=== PATIENT | female | born 1970 | race Caucasian/White ===

== ENCOUNTER 2020-06-11 07:36 | Outpatient (REF) | payer BC, SELFPAY ==
--- NOTE | 2020-06-11 07:40 | MM_ITS ---
EXAMINATION: MM SCREENING DIGITAL BREAST TOMOSYNTHESIS, BILATERAL CLINICAL INFORMATION: Screening. Asymptomatic. The lifetime risk of breast cancer based on the Tyrer-Cuzick Model is 13%. COMPARISON: Mammography: 06/04/2019, 04/21/2018 TECHNIQUE: Digital breast tomosynthesis is performed in both the craniocaudal and mediolateral oblique views along with computer-aided detection (CAD). Synthesized 2D images are generated from the tomosynthesis. FINDINGS: There are scattered areas of fibroglandular density (ACR BI-RADS breast composition Category b). There are no significant masses, abnormal calcifications, or other abnormalities. The axilla and skin contours are unremarkable. No significant changes from prior studies. MM/MM tomosynthesis screening BI IMPRESSION: No mammographic evidence of malignancy. ASSESSMENT: BI-RADS 1: Negative RECOMMENDATION: Routine annual mammography screening. This patient's information was entered into a reminder system with a target due date for their next mammogram.
== END 2020-06-11 07:37 | disposition home or self-care (01) ==
LOC: HO.MAMMO 07:36
PROVIDERS: PCP Internal Medicine; Visit Provider Internal Medicine
DX: Z12.31 Encounter for screening mammogram for malignant neoplasm of breast (principal)
CPT/HCPCS: 77063; 77067

== ENCOUNTER → 2021-11-09 10:56 | Outpatient (BNVA) | payer BC, SELFPAY | PROVIDERS: PCP Internal Medicine; Referring Provider Internal Medicine; Visit Provider Physician Assistant | DX: Z13.89 Encounter for screening for other disorder (principal) ==

== ENCOUNTER 2022-02-26 07:18 | Day surgery (SDC) | payer BC, SELFPAY ==
[2022-02-22 10:04] VITALS: BMI 25.2
--- NOTE | 2022-02-25 09:52 | P.CONAN_ITS ---
Documented by User: Yesenia Lainez NP 02/25/22 09:52 HPI - Anesthesia Eval Consult details Narrative: 51yo F for Colonoscopy PMFSH Active Problems Active Problems: All Active Problems (Updated 11/09/21 @ 11:28 by Deepa Lainez PA-C) Colon cancer screening (Acute) Overweight (BMI 25.0-29.9) (Acute) Annual physical exam (Acute) Vitamin D deficiency (Acute) Acquired hypothyroidism (Acute) Asthma (Acute) Past Medical History Medical History Acquired hypothyroidism Asthma Overweight (BMI 25.0-29.9) Vitamin D deficiency Family History Family History Mother Hypertension Hyperlipidemia Dementia Surgical History Surgical History No significant past surgical history Social History Social History Housing: House Alcohol intake: current Alcohol intake frequency: a few times a week Alcohol type: beer Patient Tobacco Use Status: Former Tobacco user Second Hand Smoke Exposure: Yes Use of substances other than those prescribed or required for medical reasons: No Are you DNR?: No Advance Directives: No Advance Directives Information Provided: Yes service: No Current occupational status: employed Meds Allergies Allergy/AdvReac Type Severity Reaction Status Date / Time nitrofurantoin Allergy Intermediate HIVES Verified 02/19/22 13:54 [From Macrobid] Home Medications Medication Instructions Recorded Confirmed Last Taken Type norgestimate-ethinyl estradiol 1 tab PO DAILY 09/12/20 02/22/22 Unknown History 0.18 mg/0.215mg/0.25mg-35 mcg(28)tablet Exam Exam Date and Time: February 25, 2022 0952 Height,Weight and Vital Signs: Height 5 ft 4.5 in Weight 67.585 kg Assessment and Plan Assessment Anesthesia Assessment: Chart Reviewed Documented by User: Aury Freedman MD 02/26/22 07:55 [facility] Past Medical History Medical History Acquired hypothyroidism Asthma Overweight (BMI 25.0-29.9) Vitamin D deficiency Family History Family History Mother Hypertension Hyperlipidemia Dementia Surgical History Surgical History No significant past surgical history History of Problems with Anesthesia: No Social History Social History Housing: House Alcohol intake: current Alcohol intake frequency: a few times a week Alcohol type: beer Patient Tobacco Use Status: Former Tobacco user Second Hand Smoke Exposure: Yes Use of substances other than those prescribed or required for medical reasons: No Are you DNR?: No Advance Directives: No Advance Directives Information Provided: Yes service: No Current occupational status: employed Meds Allergies Allergy/AdvReac Type Severity Reaction Status Date / Time nitrofurantoin Allergy Intermediate HIVES Verified 02/19/22 13:54 [From Macrobid] Home Medications Medication Instructions Recorded Confirmed Last Taken Type norgestimate-ethinyl estradiol 1 tab PO DAILY 09/12/20 02/22/22 Unknown History 0.18 mg/0.215mg/0.25mg-35 mcg(28)tablet Exam Airway Mallampati Class: II TM Dist: >3cm Neck ROM: Full Loose/Missing/Broken Teeth: No Heart: RRR Lungs: CTA Assessment and Plan Assessment Anesthesia Assessment: Anesthesia Plan Discussed Final Anesthetic Review History of Problems with Anesthesia: No NPO: Yes ASA Class: II Final Preanesthetic Review: Meds/Allgs Chart Reviewed, Consent Obtained/Reviewed and Anes Risks/Benef Reviewed Patient Risk: Low Procedure Risk: Low Anesthetic Plan Anesthetic Plan: MAC: Disposition: Standard PACU
[2022-02-26 07:26] VITALS: BMI 25.0
--- NOTE | 2022-02-26 07:26 | MHC.SHP ---
Pre-Procedural Eval Section A Date of Service: 02/26/22 The patient is an INPATIENT: No The History & Physical has been completed within 30 days and I have reviewed it.: No Section B Chief Complaint: screening Details of Present Illness: Colon cancer screening Relevant Family History (Specify if Yes): No Relevant Social History: Tobacco Use (Former smoker) Present Medications: see Short Stay Collaborative assessment Medical History: Significant History (Acquired hypothyroidism Asthma Overweight (BMI 25.0-29.9) Vitamin D deficiency) History of Previous Operations: No relevant previous surgery Allergies: Allergies Allergy/AdvReac Type Severity Reaction Status Date / Time nitrofurantoin Allergy Intermediate HIVES Verified 02/19/22 13:54 [From Macrobid] Review of Systems Sugical H&P ROS: Negative: Constitution, Cardiovascular, Respiratory and Gastrointestinal Exam Surgical H&P Exam: Normal: Heart, Normal: Lungs, Normal: Extremities and Normal: Abdomen Plan Diagnosis/Plan: Unchanged I have reviewed the history and physical and performed a pertinent physical examination on my patient. No changes have occurred unless specified.
[2022-02-26] MEDS: Lactated Ringers 1,000 ML 100 ML IVCONT (07:47)
--- NOTE | 2022-02-26 08:13 | P.BOP_ITS ---
Brief Operative Note Date of Service: 02/26/22 Pre-op diagnosis: Colon cancer screening Post-op diagnosis: other (Diverticulosis, hemorrhoids) Procedure: COLONOSCOPY TILL CECUM Consent: Indications for the procedure and potential complications of bleeding, perforation, reaction to medications and missed diagnosis were discussed with the patient and informed consent was obtained. Instrument: Olympus PCF H 190 L variable stiffness pediatric colonoscope Monitoring: Vital signs and clinical assessment, intermittent blood pressure monitoring, continuous EKG monitoring, Pulse oximetry and Carbon Dioxide monitoring were done throughout the procedure. Colon withdrawl time was 7 minutes. Procedure: The patient was placed in the left lateral decubitis position and pre-procedure medications were administered. After a digital rectal examination of the ano-rectum, the video colonoscope was inserted into the rectum and advanced through the colon to the cecum. The colonoscope was slowly withdrawn in a retrograde panoramic fashion and the colon mucosa was carefully examined including a retroflexed view of the rectum. Findings and interventions are described below. Procedure Difficulty: Without difficulty Findings: Terminal Ileum: Not evaluated Cecum: Normal Ascending Colon: Normal Transverse Colon: Normal Descending Colon: Normal Sigmoid Colon: Moderate diverticulosis Rectum: Normal Ano-rectum: Moderate internal hemorrhoids Colon preparation: Excellent Impression and Post Procedure Diagnosis: Colonoscopy Findings: No polyps were detected Moderate diverticulosis seen in the sigmoid colon Moderate hemorrhoids on retroflexed exam. Plan: Patient has an appointment on 03/11/22 in the GI Clinic with ERIC Hunt. Repeat Colonoscopy in 9-10 years (earlier if patient develops any new GI symptoms or family hx). Above findings were reviewed with the patient and diverticulosis handout was given in the discharge area Surgeon: Ryan Loomis MD Anesthesia: MAC Was an Cigar Head Perforator used for this Procedure?: Yes Cigar Head Perforator: Apolonia Romo Estimated blood loss (mL): 0 Pathology: none sent Condition: stable Disposition: PACU
--- NOTE | 2022-02-26 08:15 | W.PM.OPN ---
Operative Note Operative Note Date of Service: 02/26/22 Narrative: Pre-op diagnosis: Colon cancer screening Post-op diagnosis:?other (Diverticulosis, hemorrhoids) Procedure: COLONOSCOPY TILL CECUM Consent: Indications for the procedure and potential complications of bleeding, perforation, reaction to medications and missed diagnosis were discussed with the patient and informed consent was obtained. Instrument: Olympus PCF H 190 L variable stiffness pediatric colonoscope Monitoring: Vital signs and clinical assessment, intermittent blood pressure monitoring, continuous EKG monitoring, Pulse oximetry and Carbon Dioxide monitoring were done throughout the procedure. Colon withdrawl time was 7 minutes. Procedure: The patient was placed in the left lateral decubitis position and pre-procedure medications were administered. After a digital rectal examination of the ano-rectum, the video colonoscope was inserted into the rectum and advanced through the colon to the cecum. The colonoscope was slowly withdrawn in a retrograde panoramic fashion and the colon mucosa was carefully examined including a retroflexed view of the rectum. Findings and interventions are described below. Procedure Difficulty: Without difficulty Findings: Terminal Ileum: Not evaluated Cecum:? Normal Ascending Colon:? Normal Transverse Colon:? Normal Descending Colon:? Normal Sigmoid Colon:? Moderate diverticulosis Rectum:? Normal Ano-rectum:? Moderate internal hemorrhoids Colon preparation: Excellent ? Impression and Post Procedure Diagnosis: Colonoscopy Findings: No polyps were detected Moderate diverticulosis seen in the sigmoid colon Moderate hemorrhoids on retroflexed exam. Plan: Patient advised to cancel her FU appointment on 03/11/22 in the GI Clinic with ERIC Hunt (since no biopsies were obtained). Repeat Colonoscopy in 9-10 years (earlier if patient develops any new GI symptoms or family hx). Above findings were reviewed with the patient and diverticulosis handout was given in the discharge area Surgeon: Ryan Loomis MD Anesthesia:?MAC Was an Fertilizer Processing Supervisor used for this Procedure?:?Yes Fertilizer Processing Supervisor:?Aoplonia Romo Estimated blood loss (mL):?0 Pathology:?none sent Condition:?stable Disposition:?PACU
[2022-02-26 08:55] VITALS: BP 93/55; PULSE 83; RESP 14; TEMP 36.5; O2SAT 96
[2022-02-26 09:10] VITALS: BP 115/68; PULSE 75; RESP 14; TEMP 36.1; O2SAT 99
== END 2022-02-26 10:02 | disposition home or self-care (01) ==
PROVIDERS: PCP Internal Medicine; Visit Provider Internal Medicine Gastroenterology
PROC: 0DJD8ZZ Inspection of Lower Intestinal Tract, Via Natural or Artificial Opening Endoscopic (ICD-10-PCS; CPT 45378; principal; 2022-02-26 08:30)
DX: Z12.11 Encounter for screening for malignant neoplasm of colon (principal); K57.30 Diverticulosis of large intestine without perforation or abscess without bleeding; K64.8 Other hemorrhoids; E55.9 Vitamin D deficiency, unspecified; E03.9 Hypothyroidism, unspecified; E66.3 Overweight; Z68.25 Body mass index [BMI] 25.0-25.9, adult; J45.20 Mild intermittent asthma, uncomplicated; Z79.51 Long term (current) use of inhaled steroids; Z79.899 Other long term (current) drug therapy; Z88.1 Allergy status to other antibiotic agents
CPT/HCPCS: 45378; J3010

== ENCOUNTER 2022-05-11 08:39 | Outpatient (REF) | payer BC, SELFPAY ==
--- NOTE | ~2022-05-11 | MM_ITS ---
EXAMINATION: MM SCREENING DIGITAL BREAST TOMOSYNTHESIS, BILATERAL CLINICAL INFORMATION: Screening. Asymptomatic. The lifetime risk of breast cancer based on the Tyrer-Cuzick Model is 13%. COMPARISON: Mammography: 06/11/2020, 06/04/2019, 04/21/2018 TECHNIQUE: Digital breast tomosynthesis is performed in both the craniocaudal and mediolateral oblique views along with computer-aided detection (CAD). Synthesized 2D images are generated from the tomosynthesis. FINDINGS: There are scattered areas of fibroglandular density (ACR BI-RADS breast composition Category b). There are no significant masses, abnormal calcifications, or other abnormalities. No developing density or interval architectural abnormality. No significant changes parenchymal pattern. Skin contours are smooth. MM/MM tomosynthesis screening BI IMPRESSION: No mammographic evidence of malignancy. ASSESSMENT: BI-RADS 1: Negative RECOMMENDATION: Routine annual mammography screening. This patient's information was entered into a reminder system with a target due date for their next mammogram.
== END 2022-05-11 08:40 | disposition home or self-care (01) ==
LOC: HO.MAMMO 08:39
PROVIDERS: Visit Provider Internal Medicine
DX: Z12.31 Encounter for screening mammogram for malignant neoplasm of breast (principal)
CPT/HCPCS: 77063; 77067

== ENCOUNTER 2023-05-17 09:16 | Outpatient (REF) | payer BC, SELFPAY | END 2023-05-17 09:17 | disposition home or self-care (01) | LOC: HO.MAMMO 09:16 | PROVIDERS: PCP Internal Medicine; Visit Provider Internal Medicine | DX: Z12.31 Encounter for screening mammogram for malignant neoplasm of breast (principal) | CPT/HCPCS: 77063; 77067 ==

== ENCOUNTER → 2023-05-17 09:30 | Outpatient (BNV) | payer BC, SELFPAY | PROVIDERS: PCP Internal Medicine; Visit Provider Radiology Diagnostic Radiology | DX: Z12.31 Encounter for screening mammogram for malignant neoplasm of breast (principal) | CPT/HCPCS: 77063; 77067 ==

== ENCOUNTER 2023-10-04 08:54 | Outpatient (AMB) | payer BC, SELFPAY ==
[2023-10-04 08:59] VITALS: BP 110/72; PULSE 95; O2SAT 99; BMI 23.7
--- NOTE | 2023-10-04 08:59 | MHC.PC.OV ---
Vital Signs 10/04/23 08:59 Height 5 ft 4.5 in Weight 140 lb 8 oz BMI 23.7 BP 110/72 Blood Pressure Location Lt brachial Position Sitting Pulse 95 Pulse Source Pulse Oximeter Pulse Oximetry (%) 99 Oxygen Delivery Method Room Air Intake Visit Reasons: PE Software Security Consultant Required: No Accompanied by: Self / Same As Patient Allergies nitrofurantoin [From Macrobid] Allergy (Intermediate, Verified 10/04/23 09:34) HIVES Medication List - Last Reconciled 10/04/23 by Anirudh Adams MD albuterol sulfate 90 mcg/actuation 2 puffs inhalation QID PRN 90 days budesonide-formoterol 80-4.5 mcg/actuation (Symbicort) 2 inhalations inhalation BID 90 days levothyroxine (Synthroid) 75 mcg PO DAILY 90 days norgestimate-ethinyl estradiol 0.18/0.215/0.25 mg-35 mcg (28) 1 tab PO DAILY Tobacco use date assessed: 10/04/23 Dental Screening Dental Screen Date: 10/04/23 Did you have a dental visit in the last 12 months?: Yes Did you have a dental problem in the last 6 months where you did not have access to dental care?: No Was dental information given to patient?: Patient has dentist HPI PE HPI Details Patient comes in today for her annual physical examination States that she has been feeling stressed lately Reports that she still has trouble sleeping through the night - used to wake up around 1 to 2 am in the morning when her mother was still alive (mother last ) to change her and even though it has been a few months now since her mother passed, she still wakes up around this time out of habit States that she also wakes up a few times through the night and feels fatigued often when she wakes up in the morning Has also had some lapses of memory a few times and this is making her concerned that she might end up like her mother, who suffered from dementia during her last few years Relates (+) on and off headaches lately, mostly frontal, and she feels that these may be more from her lack of sleep and stress She denies any associated photophobia or nausea/vomiting with her headaches She denies any dizziness Denies any chest pains, no SOB No abdominal pain and no change in bowel habits noted Denies any acute urinary symptoms Needs her Symbicort inhaler Rx refilled through [facility] States that she needs her lab orders printed out as she has to get her labs done with [facility] for her insurance to cover the tests She is up-to-date with all of her cancer screenings - pap smear and 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 Loomis in January 2022 (recommend repeat colonoscopy in 10 years) [facility] Medical History (Updated 10/04/23 @ 09:49 by Anirudh Adams MD) Insomnia Vitamin D deficiency Acquired hypothyroidism Asthma Surgical History History of colonoscopy (~02/26/22) Family History Mother Hypertension Hyperlipidemia Dementia Social History Housing: House Alcohol intake: current Alcohol intake frequency: a few times a week Alcohol type: beer Patient Tobacco Use Status: Former Tobacco user Tobacco use type: Cigarette e-Cigarette/Vaping Use: Never Used Second Hand Smoke Exposure: Yes service: No Current occupational status: employed Cognitive needs: No Hearing needs: No Vision needs: Yes Questionnaire PHQ-9 Over the last 2 weeks, how often have you been bothered by any of the following problems? 1. Little interest or pleasure in doing things: not at all 2. Feeling down, depressed, or hopeless: not at all 3. Trouble falling or staying asleep, or sleeping too much: not at all 4. Feeling tired or having little energy: not at all 5. Poor appetite or overeating: not at all 6. Feeling bad about yourself - or that you are a failure or have let yourself or your family down: not at all 7. Trouble concentrating on things, such as reading the newspaper or watching television: not at all 8. Moving or speaking so slowly that other people could have noticed. Or the opposite - being so fidgety or restless that you have been moving around a lot more than usual: not at all 9. Thoughts that you would be better off or of hurting yourself in some way: not at all Total score: 0 Depression Screening Interpretation: Negative Depression Screening Done: Yes 22888 - PHQ-9 Billing: Yes Source: Developed by Drs. Atul Pickard, Scarlett Aponte, Troy Milligan and colleagues, with an educational sunitha from [employer]. Thrive Questionnaire Date Thrive assessed: 10/04/23 I am a: Patient What is your living situation today?: I have a steady place to live Within the past 12 months, did the food you bought not last and you didn't have the money to get more?: Never true Within the past 12 months, did you worry whether your food would run out before you got money to buy more?: Never true Do you have trouble paying for medicines?: No Do you have trouble getting transportation to medical appointments?: No Do you have trouble paying your heating and electricity bill?: No Do you have trouble taking care of your child, family member or friend?: No Do you have trouble with day-to-day activities such as bathing, preparing meals, shopping, managing finances, etc.?: No Are you currently unemployed and looking for a job?: No Are you interested in more education?: No Please select the resources that you would like help with: None Currently or been in a relationship where the following occur: no concerns reported THRIVE Score: 0 AUDIT C Alcohol Use Questionnaire (AUDIT-C) 1. How often do you have a drink containing alcohol?: Never 3. How often do you have six or more drinks on one occasion?: Never Total Score: 0 Score Reviewed/Action Taken: Yes SCOTT-7 AMB Questionnaire SCOTT-7 Date SCOTT - 7 assessed: 10/04/23 Feeling nervous, anxious, or on edge: 0 = Not at all Not being able to stop or control worryin = Not at all Worrying too much about different things: 0 = Not at all Trouble relaxin = Not at all Being so restless that it is hard to sit still: 0 = Not at all Becoming easily annoyed or irritable: 0 = Not at all Feeling afraid as if something awful might happen: 0 = Not at all Total SCOTT-7 score (0-4 normal; 5-9 mild; 10-14 moderate; 15-21 severe): 0 Source: Developed by Drs. Atul Pickard, Scarlett Aponte, Troy Milligan and colleagues, with an educational sunitha from [employer]. Review of Systems Const Denies chills, Reports difficulty sleeping (wakes up often in the middle of the night), Reports fatigue, Denies fever(s), Reports headache(s) (on and off) and Denies malaise Eyes Denies blurry vision, Denies change in vision, Denies irritation and Denies itchy eyes ENT Denies dysphagia, Denies dizziness, Denies otalgia, Reports headache(s) (on and off), Denies nasal congestion, Denies neck pain, Denies odynophagia, Denies sinus pain and Denies sore throat Card Denies chest pain, Denies rapid heart rate, Denies irregular heart rhythm, Denies palpitations and Denies dyspnea Resp Denies chest congestion, Denies cough, Denies dyspnea and Denies wheezing GI Denies abdominal pain, Denies bloating, Denies constipation, Denies dysphagia, Denies heartburn, Denies diarrhea, Denies nausea, Denies odynophagia and Denies vomiting Denies hematuria, Denies urinary frequency, Denies dysuria, Denies urinary incontinence and Denies urinary urgency Musc Denies back pain, Denies arthralgias, Denies joint swelling, Denies muscle weakness and Denies neck pain Skin/Breast Denies breast pain, Denies breast mass, Denies change in pigmentation, Denies lesions, Denies rash and Denies unusual bruising Neuro Denies dizziness, Reports headache(s) (on and off) and Denies paresthesias Psych Reports anxiety, Denies depression and Denies panic attacks Endo Reports fatigue and Denies palpitations Vin/Lymph Denies easy bruising Aller/Immun Denies itchy eyes and Denies wheezing Physical exam (Primary Care) Vital Signs: Last Vital Signs Pulse 95 10/04/23 08:59 BP 110/72 10/04/23 08:59 Pulse Ox 99 10/04/23 08:59 Oxygen Delivery Method Room Air 10/04/23 08:59 BMI result Body Mass Index 23.7 Tobacco/Smoking Status: Tobacco use Status Tobacco use date assessed 10/04/23 10/04/23 09:05 Patient Tobacco Use Status Former Tobacco user 10/04/23 09:05 Tobacco use type Cigarette 10/04/23 09:05 e-Cigarette/Vaping Use Never Used 10/04/23 09:05 PHQ-9: PHQ-9 Score PHQ-9: Total score 0 10/04/23 09:05 Depression Screening Interpretation: Negative Thrive Assessment: Date of Thrive Assessment Date Thrive assessed 10/04/23 10/04/23 09:05 Currently or been in a relationship where the following occur: no concerns reported Const General: no acute distress, alert and awake Orientation/consciousness: patient oriented x3 HENMT Head: Yes normocephalic and Yes atraumatic Ears: external ears normal, TM's normal bilaterally and EAC's normal General nose exam: No nasal discharge present Face and sinus: Yes normal facial exam and Yes sinuses nontender Teeth and gingiva: dentition normal Throat: Yes posterior oropharynx normal and Yes tonsils normal (no TP congestion) Eyes Eyelids: Yes eyelids normal Conjunctivae: conjunctivae normal Pupils: Equal, round and reactive pupils present EOM: EOMs intact bilaterally Neck Neck: Yes no lymphadenopathy and Yes supple Thyroid: Thyroid normal Resp Auscultation: clear to auscultation bilaterally, no rales and no wheezes Cardio Rate: regular rate Rhythm: regular rhythm Heart sounds: no murmurs GI Palpation (GI): Soft to palpation, nontender and No hepatosplenomegaly present Auscultation: normal bowel sounds General: Yes no CVA tenderness Back/Spine/Pelvis Back: no CVA tenderness Thoracic/Lumbar Spine: thoracic and lumbar spine normal to inspection Skin Lesions: no lesions Rashes: no rashes Neuro General: patient oriented x3, moves all extremities, no focal motor deficits and CN's II-XI intact bilaterally Cranial nerves: Yes Equal, round and reactive pupils present Cognition (Neuro): normal cognition Gait exam (Neuro): Normal gait present Extrem General: Yes no clubbing, cyanosis or edema Assessment and Plan Assessment & Plan (1) Annual physical exam: Code(s): Z00.00 - Encounter for general adult medical examination without abnormal findings Plan: Check labs She is up-to-date with all of her cancer screenings (2) Acquired hypothyroidism: Code(s): E03.9 - Hypothyroidism, unspecified Plan: Continue Synthroid 75 mcg QD Will recheck her TFTs for follow up (3) Asthma: Code(s): J45.909 - Unspecified asthma, uncomplicated Qualifiers: Asthma severity: mild Asthma persistence: intermittent Asthma complication type: uncomplicated Qualified Code(s): J45.20 - Mild intermittent asthma, uncomplicated Plan: Stable/well-controlled with no acute flare ups recently Continue Symbicort 80-4.5 mcg 2 inhalations BID (Rx refilled) and Albuterol HFA 2 inhalations Q 6 hours PRN (4) Vitamin D deficiency: Code(s): E55.9 - Vitamin D deficiency, unspecified Plan: Will recheck her Vitamin D level for follow up (5) Headache: Code(s): R51.9 - Headache, unspecified Qualifiers: Headache type: unspecified Headache chronicity pattern: episodic headache Intractability: not intractable Qualified Code(s): R51.9 - Headache, unspecified Plan: Likely due to stress and lack of sleep Will see if improving her sleep will help resolve these but patient is advised to call at any time if she feels that her headaches are progressing or getting worse (6) Insomnia: Code(s): G47.00 - Insomnia, unspecified Qualifiers: Insomnia type: unspecified Qualified Code(s): G47.00 - Insomnia, unspecified Plan: Sleep hygiene discussed Patient is advised to try some OTC Melatonin for now for a few weeks to see if these can help her regulate and maintain her sleeping through the night and if unsuccessful, advised that she can all at any time for some Rx to help with her sleep (7) Anxiety: Code(s): F41.9 - Anxiety disorder, unspecified Plan: Is likely related to her lack of sleep and due to subconscious concerns about her own risks for dementia (her mother suffered from dementia over the past few years prior to her passing last Thanksgiving) Advised that if we can help improve her sleep that this may get better but if not, she can call for appointment or Rx any time she feels that this is becoming a significant issue and is starting to impact her daily activities and routine Plan To return in 1 year for her next annual physical examination Orders: Orders Complete Blood Count Auto Diff Today Z00.00 - Encounter for general adult medical examination without abnormal findings Thyroid Stimulating Hormone Today E03.9 - Hypothyroidism, unspecified, Z00.00 - Encounter for general adult medical examination without abnormal findings Vitamin D 25-OH Total Today E55.9 - Vitamin D deficiency, unspecified, Z00.00 - Encounter for general adult medical examination without abnormal findings Comprehensive [place]. Panel Fast Today E78.00 - Pure hypercholesterolemia, unspecified, Z00.00 - Encounter for general adult medical examination without abnormal findings Lipid Panel Today E78.00 - Pure hypercholesterolemia, unspecified, Z00.00 - Encounter for general adult medical examination without abnormal findings UA CC w/rflx Micro + Cult Today R30.0 - Dysuria, Z00.00 - Encounter for general adult medical examination without abnormal findings Free T4 (Free Thyroxine) Today E03.9 - Hypothyroidism, unspecified, Z00.00 - Encounter for general adult medical examination without abnormal findings Medications: Refilled budesonide-formoterol 80-4.5 mcg/actuation (Symbicort) 2 inhalations inhalation BID 90 days 3 inhalers 3RF J45.20 - Mild intermittent asthma, uncomplicated budesonide-formoterol 80-4.5 mcg/actuation (Symbicort) 2 inhalations inhalation BID 90 days 3 inhalers 3RF J45.20 - Mild intermittent asthma, uncomplicated Coding Level of Care Code Est Pt Prev Care 40-64y(70548) Diagnoses Annual physical exam Z00.00 Acquired hypothyroidism E03.9 Mild intermittent asthma without complication J45.20 Asthma severity: mild Asthma persistence: intermittent Asthma complication type: uncomplicated Vitamin D deficiency E55.9 Nonintractable episodic headache, unspecified headache type R51.9 Headache type: unspecified Headache chronicity pattern: episodic headache Intractability: not intractable Insomnia, unspecified type G47.00 Insomnia type: unspecified Anxiety F41.9
== END 2023-10-04 09:32 | disposition home or self-care (01) ==
PROVIDERS: PCP Internal Medicine; Visit Provider Internal Medicine
DX: Z00.00 Encounter for general adult medical examination without abnormal findings (principal); E03.9 Hypothyroidism, unspecified; J45.20 Mild intermittent asthma, uncomplicated; E55.9 Vitamin D deficiency, unspecified; R51.9 Headache, unspecified; G47.00 Insomnia, unspecified; F41.9 Anxiety disorder, unspecified
CPT/HCPCS: 99396

== ENCOUNTER 2024-05-22 09:20 | Outpatient (REF) | payer BC, SELFPAY ==
--- NOTE | ~2024-05-22 | MM_ITS ---
EXAMINATION: MM SCREENING DIGITAL BREAST TOMOSYNTHESIS, BILATERAL CLINICAL INFORMATION: Screening. Asymptomatic. COMPARISON: Mammography: Comparison is made with available priors TECHNIQUE: Digital breast mammography with tomosynthesis is performed in both the craniocaudal and mediolateral oblique views along with computer-aided detection (CAD). FINDINGS: The breasts are heterogeneously dense, which may obscure small masses (ACR BI-RADS breast composition Category c). There are no significant masses, abnormal calcifications, or other abnormalities. MM/MM tomosynthesis screening BI IMPRESSION: No mammographic evidence of malignancy. ASSESSMENT: BI-RADS BI-RADS 1 - Negative RECOMMENDATION: Routine annual mammography screening. 1 year F/U This examination should not preclude the clinical evaluation of a suspicious palpable abnormality. This patient's information was entered into a reminder system with a target due date for their next mammogram. Electronically signed by: Savannah Munoz DO 06/01/2024 10:47 AM EDT
== END 2024-05-22 09:21 | disposition home or self-care (01) ==
LOC: HO.MAMMO 09:20
PROVIDERS: PCP Internal Medicine; Visit Provider Internal Medicine
DX: Z12.31 Encounter for screening mammogram for malignant neoplasm of breast (principal)
CPT/HCPCS: 77063; 77067

== ENCOUNTER → 2024-05-22 09:30 | Outpatient (BNV) | payer BC, SELFPAY | PROVIDERS: PCP Internal Medicine; Visit Provider Internal Medicine | DX: Z12.31 Encounter for screening mammogram for malignant neoplasm of breast (principal) | CPT/HCPCS: 77063; 77067 ==

== ENCOUNTER 2024-08-06 14:13 | Outpatient (AMB) | payer OTHER, SELFPAY ==
[2024-08-06 14:20] VITALS: BP 118/76; PULSE 79; O2SAT 99; BMI 24.6
--- NOTE | 2024-08-06 14:20 | A.OFFPC_ITS ---
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 Accompanied by: Self / Same As Patient Allergies nitrofurantoin [From Macrobid] Allergy (Intermediate, Verified 08/06/24 14:37) HIVES Medication List - Last Reconciled 08/06/24 by Anirudh Adams MD albuterol sulfate 90 mcg/actuation 2 puffs inhalation QID PRN 90 days budesonide-formoterol 80-4.5 mcg/actuation (Symbicort) 2 inhalations inhalation BID 90 days levothyroxine (Synthroid) 75 mcg PO DAILY 90 days meclizine 25 mg PO TID PRN norgestimate-ethinyl estradiol 0.18/0.215/0.25 mg-35 mcg (28) 1 tab PO DAILY Tobacco use date assessed: 08/06/24 Dental Screening Dental Screen Date: 08/06/24 Did you have a dental visit in the last 12 months?: Yes Did you have a dental problem in the last 6 months where you did not have access to dental care?: No Was dental information given to patient?: Patient has dentist HPI vertigo/ dizziness HPI Details Patient comes in today for evaluation of recurrent vertigo over the past couple of months Relates that her symptoms first started back on 06/05/2024 - recalls that she was in bed and just turned her head when she suddenly felt that everything was spinning around her Relates that she had some nausea and vomiting back then with her symptoms States that she has a friend who works as a physical therapist and who instructed her on the Raquel maneuver States that she tried this on her own, which initially triggered another episode of vertigo but eventually provided some relief of her symptoms States that his symptoms gradually on cleared up on their own after 2 weeks but she then had another bout of vertigo last month on 07/13/2024 while she was receiving massage and that her on and off symptoms lasted for about a week Relates that she had her most recent bout of vertigo a few days ago on 08/02/2024 that was again triggered when she turned around in bed and symptoms have been occurring on and off since then She also reports recent symptoms of headaches, unsteadiness, difficulty focusing and sensation of brain fog recently, which is affecting her ability to work and perform daily activities States that she recently tried the Raquel maneuver again but this time it did not help Patient denied any recent head trauma or any recent cough or cold symptoms She denies any chest pains, no shortness of breath No abdominal pain and no change in bowel habits noted [facility] Medical History (Updated 08/06/24 @ 14:47 by Anirudh Adams MD) Insomnia Vitamin D deficiency Acquired hypothyroidism Asthma Surgical History History of colonoscopy (~02/26/22) Family History Mother Hypertension Hyperlipidemia Dementia Social History Housing: House Alcohol intake: current Alcohol intake frequency: a few times a week Alcohol type: beer Patient Tobacco Use Status: Former Tobacco user Tobacco use type: Cigarette e-Cigarette/Vaping Use: Never Used Second Hand Smoke Exposure: Yes service: No Current occupational status: employed Cognitive needs: No Hearing needs: No Vision needs: Yes Questionnaire PHQ-9 Over the last 2 weeks, how often have you been bothered by any of the following problems? 1. Little interest or pleasure in doing things: not at all 2. Feeling down, depressed, or hopeless: not at all 3. Trouble falling or staying asleep, or sleeping too much: not at all 4. Feeling tired or having little energy: not at all 5. Poor appetite or overeating: not at all 6. Feeling bad about yourself - or that you are a failure or have let yourself or your family down: not at all 7. Trouble concentrating on things, such as reading the newspaper or watching television: not at all 8. Moving or speaking so slowly that other people could have noticed. Or the opposite - being so fidgety or restless that you have been moving around a lot more than usual: not at all 9. Thoughts that you would be better off or of hurting yourself in some way: not at all Total score: 0 Depression Screening Interpretation: Negative Depression Screening Done: Yes 10438 - PHQ-9 Billing: Yes Source: Developed by Drs. Atul Pickard, Scarlett pAonte, Troy Milligan and colleagues, with an educational sunitha from [employer]. Thrive Questionnaire Date Thrive assessed: 08/06/24 I am a: Patient What is your living situation today?: I have a steady place to live Within the past 12 months, did the food you bought not last and you didn't have the money to get more?: Never true Within the past 12 months, did you worry whether your food would run out before you got money to buy more?: Never true Do you have trouble paying for medicines?: No Do you have trouble getting transportation to medical appointments?: No Do you have trouble paying your heating and electricity bill?: No Do you have trouble taking care of your child, family member or friend?: No Do you have trouble with day-to-day activities such as bathing, preparing meals, shopping, managing finances, etc.?: No Are you currently unemployed and looking for a job?: No Are you interested in more education?: No Please select the resources that you would like help with: None Currently or been in a relationship where the following occur: No concerns reported THRIVE Score: 0 AUDIT C Alcohol Use Questionnaire (AUDIT-C) 1. How often do you have a drink containing alcohol?: Monthly or less 2. How many drinks containing alcohol do you have on a typical day when you are drinking?: 1 or 2 3. How often do you have six or more drinks on one occasion?: Never Total Score: 1 Score Reviewed/Action Taken: Yes SCOTT-7 AMB Questionnaire SCOTT-7 Date SCOTT - 7 assessed: 08/06/24 Feeling nervous, anxious, or on edge: 0 = Not at all Not being able to stop or control worryin = Not at all Worrying too much about different things: 0 = Not at all Trouble relaxin = Not at all Being so restless that it is hard to sit still: 0 = Not at all Becoming easily annoyed or irritable: 0 = Not at all Feeling afraid as if something awful might happen: 0 = Not at all Total SCOTT-7 score (0-4 normal; 5-9 mild; 10-14 moderate; 15-21 severe): 0 Source: Developed by Drs. Atul Pickard, Scarlett Aponte, Troy Milligan and colleagues, with an educational sunitha from [employer]. Review of Systems Const Denies chills, Reports difficulty sleeping (wakes up often in the middle of the night), Reports fatigue, Denies fever(s) and Denies headache(s) ENT Denies dysphagia, Reports vertigo (recurrent over the past month - see HPI for details), Reports dizziness, Denies otalgia, Denies headache(s), Denies neck pain, Denies odynophagia and Denies sore throat Card Denies chest pain, Denies irregular heart rhythm, Denies palpitations and Denies dyspnea Resp Denies chest congestion, Denies cough and Denies dyspnea GI Denies abdominal pain, Denies constipation, Denies dysphagia, Denies heartburn, Denies diarrhea, Reports nausea (at times, with increased vertigo), Denies odynophagia and Reports vomiting (at times) Denies urinary frequency, Denies dysuria and Denies urinary urgency Musc Denies back pain, Denies arthralgias and Denies neck pain Skin/Breast Denies rash Neuro Reports vertigo (recurrent over the past month - see HPI for details), Reports dizziness, Denies headache(s) and Denies paresthesias Psych Reports anxiety and Denies depression Endo Reports fatigue and Denies palpitations Vin/Lymph Denies easy bruising Physical exam (Primary Care) Vital Signs: Last Vital Signs Pulse 79 08/06/24 14:20 BP 118/76 08/06/24 14:20 Pulse Ox 99 08/06/24 14:20 Oxygen Delivery Method Room Air 08/06/24 14:20 BMI result Body Mass Index 24.6 Tobacco/Smoking Status: Tobacco use Status Tobacco use date assessed 08/06/24 08/06/24 14:26 Patient Tobacco Use Status Former Tobacco user 08/06/24 14:26 Tobacco use type Cigarette 08/06/24 14:26 e-Cigarette/Vaping Use Never Used 08/06/24 14:26 PHQ-9: PHQ-9 Score PHQ-9: Total score 0 08/06/24 14:53 Depression Screening Interpretation: Negative Thrive Assessment: Date of Thrive Assessment Date Thrive assessed 08/06/24 08/06/24 14:26 Currently or been in a relationship where the following occur: No concerns reported Const General: no acute distress and alert Orientation/consciousness: patient oriented x3 HENMT Ears: TM's normal bilaterally and EAC's normal Throat: Yes posterior oropharynx normal and Yes tonsils normal (no TP congestion noted) Neck Neck: Yes supple and No lymphadenopathy Thyroid: Thyroid normal Resp Auscultation: clear to auscultation bilaterally, no rales and no wheezes Cardio Rate: regular rate Rhythm: regular rhythm Heart sounds: no murmurs GI Palpation (GI): Soft to palpation and nontender Auscultation: normal bowel sounds General: Yes no CVA tenderness Back/Spine/Pelvis Back: no CVA tenderness Thoracic/Lumbar Spine: No lumbar spinal tenderness Skin Rashes: no rashes Neuro General: patient oriented x3, moves all extremities and no focal motor deficits Extrem General: Yes no clubbing, cyanosis or edema Coding Level of Care Code Est Pt Level 3 (34549) Diagnoses Recurrent vertigo R42 Additional Codes PHQ-9 - 35645 - PHQ-9 Billing: Yes ([id number]) Assessment & Plan Assessment & Plan (1) Recurrent vertigo: Code(s): R42 - Dizziness and giddiness Category: Medical Plan: Due to her recurrent vertigo and the fact that the Raquel maneuver, which patient did on her own under instructions from her friend who works as a physical therapist, did not help, will go ahead and send her for an MRI of the brain KIERRA for further evaluation Have advised patient that there are no current effective Rx for vertigo, including Meclizine, which tends to help more in cases of motion sickness rather than vertigo Plan To return as scheduled in September 2024 for her annual physical examination Orders: Orders Blood Urea Nitrogen 08/06/24 R42 - Dizziness and giddiness MR head/brain wo con 08/06/24 R42 - Dizziness and giddiness Creatinine 08/06/24 R42 - Dizziness and giddiness
== END 2024-08-06 14:59 | disposition home or self-care (01) ==
PROVIDERS: PCP Internal Medicine; Visit Provider Internal Medicine
DX: R42 Dizziness and giddiness (principal)

== ENCOUNTER → 2024-08-06 14:13 | Outpatient (BNVA) | payer OTHER, SELFPAY | PROVIDERS: PCP Internal Medicine; Visit Provider Internal Medicine | DX: R42 Dizziness and giddiness (principal) | CPT/HCPCS: 96127 ==

== ENCOUNTER 2024-11-09 08:57 | Outpatient (AMB) | payer OTHER, SELFPAY ==
[2024-11-09 09:02] VITALS: BP 116/64; PULSE 71; RESP 14; TEMP 36.2; O2SAT 99; BMI 23.3
--- NOTE | 2024-11-09 09:02 | A.OFFPC_ITS ---
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 Accompanied by: Self / Same As Patient Allergies nitrofurantoin [From Macrobid] Allergy (Intermediate, Verified 11/09/24 09:17) HIVES Medication List - Last Reconciled 11/09/24 by Anirudh Adams MD albuterol sulfate 90 mcg/actuation 2 puffs inhalation QID PRN 90 days budesonide-formoterol 80-4.5 mcg/actuation (Symbicort) 2 inhalations inhalation BID 90 days levothyroxine (Synthroid) 75 mcg PO DAILY 90 days Tobacco use date assessed: 11/09/24 Dental Screening Dental Screen Date: 11/09/24 Did you have a dental visit in the last 12 months?: Yes Did you have a dental problem in the last 6 months where you did not have access to dental care?: No Was dental information given to patient?: Patient has dentist HPI ANNUAL HPI Details Patient comes in today for her annual physical examination States that she feels okay She denies any headaches or dizziness Denies any chest pains, no SOB No nausea/vomiting, no abdominal pain No change in bowel habits noted Denies any acute urinary symptoms Needs a couple of her Rx refilled today She had her follow up labs done back in August 2024 - to discuss her results She is up-to-date with all of her cancer screenings Her annual mammogram was last done in 05/2024 She had her screening colonoscopy in 01/2022 and will be due for repeat colonoscopy in 10 years (2031) She had her yearly gynecology exam a couple of months ago - 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[employer] Medical History Insomnia Vitamin D deficiency Acquired hypothyroidism Asthma Surgical History History of colonoscopy (~02/26/22) Family History (Updated 11/09/24 @ 09:06 by Jennifer Grigsby CMA) Mother Hypertension Hyperlipidemia Dementia Social History Housing: House Alcohol intake: current Alcohol intake frequency: a few times a week Alcohol type: beer Patient Tobacco Use Status: Former Tobacco user Tobacco use type: Cigarette e-Cigarette/Vaping Use: Never Used Second Hand Smoke Exposure: Yes service: No Current occupational status: employed Cognitive needs: No Hearing needs: No Vision needs: Yes (Reading glasses) Questionnaire PHQ-9 Over the last 2 weeks, how often have you been bothered by any of the following problems? 1. Little interest or pleasure in doing things: not at all 2. Feeling down, depressed, or hopeless: not at all 3. Trouble falling or staying asleep, or sleeping too much: several days 4. Feeling tired or having little energy: several days 5. Poor appetite or overeating: not at all 6. Feeling bad about yourself - or that you are a failure or have let yourself or your family down: not at all 7. Trouble concentrating on things, such as reading the newspaper or watching television: not at all 8. Moving or speaking so slowly that other people could have noticed. Or the opposite - being so fidgety or restless that you have been moving around a lot more than usual: not at all 9. Thoughts that you would be better off or of hurting yourself in some way: not at all Total score: 2 Depression Screening Interpretation: Negative Depression Screening Done: Yes 83957 - PHQ-9 Billing: Yes Source: Developed by Drs. Atul Pickard, Scarlett Aponte, Troy Milligan and colleagues, with an educational sunitha from [employer]. Thrive Questionnaire Date Thrive assessed: 11/09/24 I am a: Patient What is your living situation today?: I have a steady place to live Within the past 12 months, did the food you bought not last and you didn't have the money to get more?: Never true Within the past 12 months, did you worry whether your food would run out before you got money to buy more?: Never true Do you have trouble paying for medicines?: No Do you have trouble getting transportation to medical appointments?: No Do you have trouble paying your heating and electricity bill?: No Do you have trouble taking care of your child, family member or friend?: No Do you have trouble with day-to-day activities such as bathing, preparing meals, shopping, managing finances, etc.?: No Are you currently unemployed and looking for a job?: No Are you interested in more education?: No Please select the resources that you would like help with: None Currently or been in a relationship where the following occur: No concerns reported THRIVE Score: 0 AUDIT C Alcohol Use Questionnaire (AUDIT-C) 1. How often do you have a drink containing alcohol?: 2-3 times a week 2. How many drinks containing alcohol do you have on a typical day when you are drinking?: 3 or 4 3. How often do you have six or more drinks on one occasion?: Never Total Score: 4 Score Reviewed/Action Taken: Yes SCOTT-7 AMB Questionnaire SCOTT-7 Date SCOTT - 7 assessed: 11/09/24 Feeling nervous, anxious, or on edge: 0 = Not at all Not being able to stop or control worryin = Not at all Worrying too much about different things: 0 = Not at all Trouble relaxin = Not at all Being so restless that it is hard to sit still: 0 = Not at all Becoming easily annoyed or irritable: 0 = Not at all Feeling afraid as if something awful might happen: 0 = Not at all Total SCOTT-7 score (0-4 normal; 5-9 mild; 10-14 moderate; 15-21 severe): 0 Source: Developed by Drs. Atul Pickard, Scarlett Aponte, Troy Milligan and colleagues, with an educational sunitha from [employer]. SCOTT-7 Assessment Billing SCOTT-7 Assessment Tool: SCOTT-7 Assessment 65409 Review of Systems Const Denies chills, Denies fatigue, Denies fever(s), Denies headache(s) and Denies malaise Eyes Denies blurry vision, Denies change in vision, Denies irritation and Denies itchy eyes ENT Denies dysphagia, Denies dizziness, Denies otalgia, Denies headache(s), Denies nasal congestion, Denies neck pain, Denies odynophagia, Denies sinus pain and Denies sore throat Card Denies chest pain, Denies rapid heart rate, Denies irregular heart rhythm, Denies palpitations and Denies dyspnea Resp Denies chest congestion, Denies cough, Denies dyspnea and Denies wheezing GI Denies abdominal pain, Denies bloating, Denies constipation, Denies dysphagia, Denies heartburn, Denies diarrhea, Denies nausea, Denies odynophagia and Denies vomiting Denies hematuria, Denies urinary frequency, Denies dysuria, Denies urinary incontinence and Denies urinary urgency Musc Denies back pain, Denies arthralgias, Denies joint swelling, Denies muscle weakness and Denies neck pain Skin/Breast Denies breast pain, Denies breast mass, Denies change in pigmentation, Denies lesions, Denies rash and Denies unusual bruising Neuro Denies dizziness, Denies headache(s) and Denies paresthesias Psych Denies anxiety and Denies depression Endo Denies fatigue and Denies palpitations Vin/Lymph Denies easy bruising Aller/Immun Denies itchy eyes and Denies wheezing Physical exam (Primary Care) Vital Signs: Last Vital Signs Temp 97.1 F 11/09/24 09:02 Pulse 71 11/09/24 09:02 Resp 14 11/09/24 09:02 BP 116/64 11/09/24 09:02 Pulse Ox 99 11/09/24 09:02 Oxygen Delivery Method Room Air 11/09/24 09:02 BMI result Body Mass Index 23.3 Tobacco/Smoking Status: Tobacco use Status Tobacco use date assessed 11/09/24 11/09/24 09:10 Patient Tobacco Use Status Former Tobacco user 11/09/24 09:10 Tobacco use type Cigarette 11/09/24 09:10 e-Cigarette/Vaping Use Never Used 11/09/24 09:10 PHQ-9: PHQ-9 Score PHQ-9: Total score 2 11/09/24 09:10 Depression Screening Interpretation: Negative Thrive Assessment: Date of Thrive Assessment Date Thrive assessed 11/09/24 11/09/24 09:10 Currently or been in a relationship where the following occur: No concerns reported Const General: no acute distress, alert and awake Orientation/consciousness: patient oriented x3 HENMT Head: Yes normocephalic and Yes atraumatic Ears: external ears normal, TM's normal bilaterally and EAC's normal General nose exam: No nasal discharge present Face and sinus: Yes normal facial exam and Yes sinuses nontender Teeth and gingiva: dentition normal Throat: Yes posterior oropharynx normal and Yes tonsils normal (no TP congestion) Eyes Eyelids: Yes eyelids normal Conjunctivae: conjunctivae normal Pupils: Equal, round and reactive pupils present EOM: EOMs intact bilaterally Neck Neck: Yes supple and No lymphadenopathy Thyroid: Thyroid normal Resp Auscultation: clear to auscultation bilaterally, no rales and no wheezes Cardio Rate: regular rate Rhythm: regular rhythm Heart sounds: no murmurs GI Palpation (GI): Soft to palpation, nontender and No hepatosplenomegaly present Auscultation: normal bowel sounds General: Yes no CVA tenderness Back/Spine/Pelvis Back: no CVA tenderness Thoracic/Lumbar Spine: thoracic and lumbar spine normal to inspection Skin Lesions: no lesions Rashes: no rashes Neuro General: patient oriented x3, moves all extremities, no focal motor deficits and CN's II-XI intact bilaterally Cranial nerves: Yes Equal, round and reactive pupils present Cognition (Neuro): normal cognition Gait exam (Neuro): Normal gait present Extrem General: Yes no clubbing, cyanosis or edema Coding Level of Care Code Est Pt Prev Care 40-64y(51066) Diagnoses Annual physical exam Z00.00 Acquired hypothyroidism E03.9 Mild intermittent asthma without complication J45.20 Asthma severity: mild Asthma persistence: intermittent Asthma complication type: uncomplicated Vitamin D deficiency E55.9 Vertigo R42 Insomnia, unspecified type G47.00 Insomnia type: unspecified Anxiety F41.9 Additional Codes SCOTT-7 Assessment Billing - SCOTT-7 Assessment Tool: SCOTT-7 Assessment 93939 ([id number]) PHQ-9 - 71037 - PHQ-9 Billing: Yes ([id number]) Assessment & Plan Assessment & Plan (1) Annual physical exam: Code(s): Z00.00 - Encounter for general adult medical examination without abnormal findings Category: Medical Plan: Results of her labs done a couple of months ago reviewed and discussed with patient She is up-to-date with all of her cancer screenings Her annual mammogram was last done in 05/2024 She had her screening colonoscopy in 01/2022 and will be due for repeat colonoscopy in 10 years (2031) She had her yearly gynecology exam a couple of months ago - 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[facility] [employer] She is not due yet for osteoporosis screening (2) Acquired hypothyroidism: Code(s): E03.9 - Hypothyroidism, unspecified Category: Medical Plan: Her TSH was slightly elevated but free T4 was normal on her recent labs and patient is clinically euthyroid Continue Levothyroxine 75 mcg QD Will recheck her labs in 1 year for follow up (3) Asthma: Code(s): J45.909 - Unspecified asthma, uncomplicated Category: Medical Qualifiers: Asthma severity: mild Asthma persistence: intermittent Asthma complica tion type: uncomplicated Qualified Code(s): J45.20 - Mild intermittent asthma, uncomplicated Plan: Controlled Continue Symbicort 80-4.5 mcg 2 inhalations BID and Albuterol HFA 1 to 2 inhalations Q 6 hours PRN (4) Vitamin D deficiency: Code(s): E55.9 - Vitamin D deficiency, unspecified Category: Medical Plan: Corrected (5) Vertigo: Code(s): R42 - Dizziness and giddiness Category: Medical Plan: Patient states that she just had 1 brief bout of dizziness/vertigo since her last visit Have reminded patient to stay hydrated and to avoid any abrupt changes in position as much as possible She had an MRI of the brain done a few months ago that came out normal (6) Insomnia: Code(s): G47.00 - Insomnia, unspecified Category: Medical Qualifiers: Insomnia type: unspecified Qualified Code(s): G47.00 - Insomnia, unspecified Plan: Sleep hygiene reinforced Patient states that her problem is mostly going back to sleep when she wakes up in the middle of the night - feels like it takes a while before she can shut her brain back down She prefers not to take any Rx at this time if she can avoid it (7) Anxiety: Code(s): F41.9 - Anxiety disorder, unspecified Category: Medical Plan: Patient feels that this has gotten better overall compared to last year Plan To return in 1 year for her next annual physical examination Orders: Orders Complete Blood Count Auto Diff 1 Year D64.9 - Anemia, unspecified, Z00.00 - Encounter for general adult medical examination without abnormal findings Comprehensive [place]. Panel Fast 1 Year E78.00 - Pure hypercholesterolemia, unspecified, Z00.00 - Encounter for general adult medical examination without abnormal findings Thyroid Stimulating Hormone 1 Year E03.9 - Hypothyroidism, unspecified, Z00.00 - Encounter for general adult medical examination without abnormal findings UA CC w/rflx Micro + Cult 1 Year R30.0 - Dysuria, Z00.00 - Encounter for general adult medical examination without abnormal findings Lipid Panel 1 Year E78.00 - Pure hypercholesterolemia, unspecified, Z00.00 - Encounter for general adult medical examination without abnormal findings Free T4 (Free Thyroxine) 1 Year E03.9 - Hypothyroidism, unspecified, Z00.00 - Encounter for general adult medical examination without abnormal findings Vitamin D 25-OH Total 1 Year E55.9 - Vitamin D deficiency, unspecified, Z00.00 - Encounter for general adult medical examination without abnormal findings Medications: Refilled budesonide-formoterol 80-4.5 mcg/actuation (Symbicort) 2 inhalations inhalation BID 90 days 3 inhalers 3RF J45.20 - Mild intermittent asthma, uncomplicated levothyroxine (Synthroid) 75 mcg PO DAILY 90 days 90 tabs 3RF E03.9 - Hypothyroidism, unspecified
--- OUTSIDE RECORDS SUMMARY | 2024-11-09 09:11 | XMS_ITS | Patient Health Record ---
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 Role Phone DEBBIE AGRAWAL Primary Care Provider PRABHU Byrnes Unavailable [phone] Allergies Allergen (clinical drug ingredient) Drug/Non Drug Allergy documented on EMR Reaction Allergy Type Onset Date Status nitrofurantoin, macrocrystals / nitrofurantoin, monohydrate MACROBID Skin Rash Drug Allergy Active Reason For Referral No Information Medications Medication SIG (Take, Route, Frequency, Duration) Notes Start Date End Date Status Tri-Estarylla 0.18/0.215/0.25 MG-35 MCG 1 tablet Orally Once a day for 84 days Active Levoxyl 75MG 1 ORAL daily for -3 10/12/2011 Active Flovent HFA 110MCG 2 INHALED twice nic y for -3 10/12/2011 Active Advair HFA 45-21 MCG/ACT 2 puffs Inhalat ion Twice a day Active Social History Tobacco Use: Social History Observation Description Date Details (start date - stop date) Former Smoker NA - NA Sexual History Question Answer Notes Had sex in the past 12 months (vaginal, oral, or anal)? Yes with Men only Prevention strategies discussed: Other Tobacco use other than smoking: Question Answer Notes Are you an other tobacco user? No AUDIT-C (Standard) Question Answer Notes Did you have a drink contain ing alcohol in the past year? Yes How often did you have six o r more drinks on one occasion in the past year? Never (0 point) How many drinks did you have on a typical day when you were drinking in the past year? 1 or 2 drinks (0 point) How often did you have a dri nk containing alcohol in the past year? 2 to 3 times a week (3 points) Points 3 Interpretation Positive Tobacco Control (Standard) Question Answer Notes Tobacco use: Former smoker How long has it been since you last smoked? Grea ter than 10 years Section Notes: MARITAL STATUS: OCCUPATION: employed full-time [employer] NUTRITION: good diet EXERCISE: regular cardio SEXUAL ACTIVITY: monogamous relationship. SMOKING: former smoker ALCOHOL: rare alcohol MARITAL STATUS: OCCUPATION: employed full-time [employer] NUTRITION: good diet EXERCISE: regular cardio SEXUAL ACTIVITY: monogamous relationship. SMOKING: former smoker ALCOHOL: rare alcohol MARITAL STATUS: OCCUPATION: employed full-time [employer] NUTRITION: good diet EXERCISE: regular cardio SEXUAL ACTIVITY: monogamous relationship. SMOKING: former smoker ALCOHOL: rare alcohol MARITAL STATUS: OCCUPATION: employed full-time [employer] NUTRITION: good diet EXERCISE: regular cardio SEXUAL ACTIVITY: monogamous relationship. SMOKING: former smoker ALCOHOL: rare alcohol MARITAL STATUS: OCCUPATION: employed full-time [employer] NUTRITION: good diet EXERCISE: regular cardio SEXUAL ACTIVITY: monogamous relationship. SMOKING: former smoker ALCOHOL: rare alcohol Problems Problem Type SNOMED Code ICD Code Onset Dates Problem Status W/U Status Risk Notes Problem Hypothyroidism (51750702) Unspecified hypothyroidism (244.9) Active confirmed Major Problem Asthma (disorder) (749824725) Asthma, unspecified, unspecified status (493.90) Active confirmed Major Vital Signs Temperature 97.5 degrees Fahrenheit 08/17/2024 Blood pressure diastolic 74 mm Hg 08/17/2024 Height 64.5 in 08/17/2024 Blood pressure systolic 120 mm Hg 08/17/2024 Weight 141 lbs 08/17/2024 BMI 23.83 kg/m2 08/17/2024 Encounters Encounter Location Date Provider Diagnosis [facility] [place] [address] [place] [address] 08/17/2024 PRABHU HAMMOND Encounter for gynecological examination (general) (routine) without abnormal findings Z01.419 ; Encounter for screening mammogram for malignant neoplasm of breast Z12.31 and Encounter for surveillance of contraceptive pills Z30.41 [facility] [place] [address] [place] [address] 07/23/2024 PRABHU HAMMOND Encounter for surveillance of contraceptive pills Z30.41 Assessments Encounter Date Diagnosis (ICD Code) Assessment Notes Treatment Notes Treatment Clinical Notes Section Notes 07/23/2024 Encounter for surveillance of contraceptive pills (ICD-10 - Z30.41) 08/17/2024 Encounter for gynecological examination (general) (routine) without abnormal findings (ICD-10 - Z01.419) During the visit, the following areas of concern were addressed: Discussed cervical cancer screening with either cytology alone every 3 years or high risk HPV co-testing every 5 years as per ASCCP guidelines. Advised continued annual pelvic exams. Patient encouraged to increase her level of exercise. SBE technique encouraged/taught. Patient reminded when annual mammogram is due. Patient encouraged to keep colon screening up to date. 08/17/2024 Encounter for screening mammogram for malignant neoplasm of breast (ICD-10 - Z12.31) 08/17/2024 Encounter for surveillance of contraceptive pills (ICD-10 - Z30.41) No contraindications to combined hormonal contraception use. Symptoms of thromboembolic events were reviewed using the ACHES acronym. We have elected to stop OCPs at this time. If her menses return and she wishes to return to pills, she can call. Plan Of Treatment Pending Test Test Name Order Date MAMMOGRAM, SCREENING 10/29/2014 THIN PREP,HPV,SNEHA IF HPV+ (>29YR)(SCRN) 11/18/2017 MM Digital Mammo Screening 11/21/2018 MM Digital Mammo Screening 03/18/2020 MM Digital Mammo Screening 11/10/2015 MM Digital Mammo Screening 11/12/2016 MM Digital Mammo Screening 11/18/2017 MM Digital Screening Mammogram 3D 2021 MM Digital Screening Mammogram 3D 2023 MM Digital Screening Mammogram 3D 2024 Next Appt Details Provider Name:PRABHU Gonzalez, 08/23/2025 08:30:00 AM, [address] [employer] [facility], [address], [place], [address], Insurance Providers Payer Name Payer Address Payer Phone Subscriber Number Group Number Insured Name Patient Relationship to Insured Coverage Start Date Coverage End Date [address] [employer] Organization [facility] [address] [place] [address] [phone] [id number] [id number] [id number] Self - patient is the insured 4 Medical (General) History Medical History History ICD Code Other asthma J45.998 Hypothyroidism, unspecified E03.9 COVID-19 U07.1 Surgical History Surgery Date(Month/Year) Hospitalization History Reason Date(Month/Year) 1 Vaginal Delivery
--- OUTSIDE RECORDS SUMMARY | 2024-11-09 09:11 | XMS_ITS | Clinical Summary ---
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 Role Phone Unavailable Primary Care Provider Unavailabl e Encounters Date Type Department Care Team Description 08/31/2024 8:57 AM EST - 08/31/2024 11:59 PM EST Hospital Encounter [facility] MRI [address] [place] [address] Headache, unspecified Discharge Disposition: Home or Self Care from Last 3 Months Social History Tobacco Use Types Packs/Day Years Used Date Smoking Tobacco: Never Assessed Comments Unknown Sex and Gender Information Value Date Recorded Sex Assigned at Not on file Legal Sex Female 8:53 AM EST Gender Identity Not on file Sexual Orientation Not on file Plan of Treatment Health Maintenance Due Date Last Done Comments Breast Cancer Screening 1970 DTaP,Tdap,and Td Vaccines (1 - Tdap) 1989 Hepatitis B Vaccines (1 of 3 - 19+ 3-dose series) 1989 Cervical Cancer Screening: Pap Smear 12/30/1991 Zoster Vaccines (1 of 2) 2020 Pneumococcal Vaccine: 50+ Years (2 of 2 - PPSV23) 05/23/2021 05/23/2020 COVID-19 Vaccine ( season) 2024 09/12/2021, 12/17/2020, 11/19/2020 Colorectal Cancer Screening: Colonoscopy 08/31/2024 Depression Screening 08/31/2024 HIV Screening 08/31/2024 Hepatitis C Screening 08/31/2024 Social Influencers of Health Screening 08/31/2024 Influenza Vaccine (Season Ended) 2025 05/23/2020, 05/24/2018, 05/04/2017, Additional history exists Pneumococcal Vaccine: Pediatrics (0 to 5 Years) and At-Risk Patients (6 to 64 Years) Aged Out 05/23/2020 No longer eligible based on patient's age to complete this topic HIB Vaccines Aged Out No longer eligi ble based on patient's age to complete this topic HPV Vaccines Aged Out No longer eligi ble based on patient's age to complete this topic Hepatitis A Vaccines Aged Out No long er eligible based on patient's age to complete this topic IPV Vaccines Aged Out No longer eligi ble based on patient's age to complete this topic MMR Vaccines Aged Out No longer eligi ble based on patient's age to complete this topic Meningococcal ACWY Vaccine Aged Out N o longer eligible based on patient's age to complete this topic Meningococcal B Vaccine Aged Out No l onger eligible based on patient's age to complete this topic RSV Immunization Patients Under 20 months Aged Out No longer eligible based on patient's age to complete this topic Varicella Vaccines Aged Out No longer eligible based on patient's age to complete this topic Procedures Procedure Name Priority Date/Time Associated Diagnosis Comments MR BRAIN WO CONTRAST Routine 08/31/2024 10:37 AM EST Headache, unspecified from Last 3 Months Results * MR Brain wo Contrast (08/31/2024 10:37 AM EST) Anatomical Region Laterality Modality Head and Neck Magnetic Resonan ce 08/31/2024 2:04 PM EST Impressions 08/31/2024 2:28 PM EST Normal appearance of the brain. Scattered mucosal thickening throughout the sinuses with fluid levels in the maxillary sinuses bilaterally. ??Correlate for acute sinusitis. -------- FINAL REPORT -------- Dictated By: HARDIK SANCHES Dictated Date: 08/31/2024 14:04 ET Assigned Physician: HARDIK SANCHES Reviewed and Electronically Signed By: HARDIK SANCHES Signed Date: 08/31/2024 14:28 ET Workstation ID: [id number] Transcribed By: Self Edit Transcribed Date: 08/31/2024 14:26 ET Narrative 08/31/2024 2:28 PM EST PROCEDURE: Brain MRI INDICATION: Brain fog, headache TECHNIQUE: Multiplanar, multisequence MRI of the brain Without contrast. COMPARISON: ??No priors available. FINDINGS: No acute infarct, mass effect, or intracranial hemorrhage. Brain parenchyma is normal in signal. Sella and foramen magnum are normal. No abnormal intracranial susceptibility artifact. Ventricles and sulci, and cisterns are normal in size configuration. ??No hydrocephalus or volume loss. Major intracranial arterial flow voids are within normal limits. Scattered mucosal thickening throughout the sinuses with small fluid levels in the maxillary sinuses bilaterally. Orbits and mastoid air cells are normal. Extracranial soft tissues and calvarium are normal. Procedure Note Hardik Sanches MD - 08/31/2024 PROCEDURE: Brain MRI INDICATION: Brain fog, headache TECHNIQUE: Multiplanar, multisequence MRI of the brain Without contrast. COMPARISON: No priors available. FINDINGS: No acute infarct, mass effect, or intracranial hemorrhage. Brain parenchyma is normal in signal. Sella and foramen magnum are normal. No abnormal intracranial susceptibility artifact. Ventricles and sulci, and cisterns are normal in size configuration. Nohydrocephalus or volume loss. Major intracranial arterial flow voids are within normal limits. Scattered mucosal thickening throughout the sinuses with small fluidlevels in the maxillary sinuses bilaterally. Orbits and mastoid air cells are normal. Extracranial soft tissues and calvarium are normal. IMPRESSION: Normal appearance of the brain. Scattered mucosal thickening throughout the sinuses with fluid levels inthe maxillary sinuses bilaterally. Correlate for acute sinusitis. -------- FINAL REPORT -------- Dictated By: HARDIK SANCHES Dictated Date: 08/31/2024 14:04 ET Assigned Physician: HARDIK SANCHES Reviewed and Electronically Signed By: HARDIK SANCHES Signed Date: 08/31/2024 14:28 ET Workstation ID: [id number] Transcribed By: Self Edit Transcribed Date: 08/31/2024 14:26 ET us Anirudh Adams MD IM MRI PROCEDURES Final Res ult from Last 3 Months
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
--- OUTSIDE RECORDS SUMMARY | 2024-11-09 09:12 | XMS_ITS ---
Author Organization [facility] Address [address] [address] Care Team Providers Care Cook House Supervisor Name Role Phone DEBBIE AGRAWAL Primary Care Provider PRABHU Byrnes [phone] REASON FOR VISIT REFILL FOR TRI NAFISA Medications Medication SIG (Take, Route, Frequency, Duration) Notes Start Date End Date Status Tri-Estarylla 0.18/0.215/0.25 MG-35 MCG 1 tablet Orally Once a day for 84 days Active Encounters Encounter Location Date Provider Diagnosis [facility] [address] [address] 07/23/2024 PRABHU HAMMOND Encounter for surveillance of contraceptive pills Z30.41 Assessments Encounter Date Diagnosis (ICD Code) Assessment Notes Treatment Notes Treatment Clinical Notes Section Notes 07/23/2024 Encounter for surveillance of contraceptive pills (ICD-10 - Z30.41) Plan Of Treatment Medication Medication Name Sig Start Date Stop Date Notes Tri-Estarylla 0.18/0.215/0.2 5 MG-35 MCG 1 tablet Orally Once a day for 84 days Next Appt Details Provider Name:PRABHU Gonzalez, 08/23/2025 08:30:00 AM, [address] [place] [address], [address], [place], [address], Progress Notes * MAGGY ARROYODOB: 1970 (53 yo F)Acc No.[id number]:07/23/2024 Patient:?ENOC ARROYO :1970???Age:53 Y???Sex:Female Address:[address] [place] [address], , [place], [address] * Refills? Refill Tri-Estarylla Tablet, 0.18/0.215/0.25 MG-35 MCG, Orally, 84 Tablet, 1 tablet, Once a day, 84 days, Refills=0 * true * Date:? Generated for Peter garcia/Delvis/Josieitting on:?11/09/2024 09:11 AM EDT
== END 2024-11-09 09:40 | disposition home or self-care (01) ==
LOC: HO.HMCH 08:58
PROVIDERS: PCP Internal Medicine; Visit Provider Internal Medicine
DX: Z00.00 Encounter for general adult medical examination without abnormal findings (principal); E03.9 Hypothyroidism, unspecified; J45.20 Mild intermittent asthma, uncomplicated; E55.9 Vitamin D deficiency, unspecified; R42 Dizziness and giddiness; G47.00 Insomnia, unspecified; F41.9 Anxiety disorder, unspecified

== ENCOUNTER → 2024-11-09 08:57 | Outpatient (BNVA) | payer OTHER, SELFPAY | PROVIDERS: PCP Internal Medicine; Visit Provider Internal Medicine | DX: Z00.00 Encounter for general adult medical examination without abnormal findings (principal); E03.9 Hypothyroidism, unspecified; J45.20 Mild intermittent asthma, uncomplicated; E55.9 Vitamin D deficiency, unspecified; R42 Dizziness and giddiness; G47.00 Insomnia, unspecified; F41.9 Anxiety disorder, unspecified; Z79.899 Other long term (current) drug therapy | CPT/HCPCS: 96127 ==

== ENCOUNTER 2025-05-29 07:55 | Outpatient (REF) | payer OTHER, SELFPAY ==
--- OUTSIDE RECORDS SUMMARY | 2021-05-28 18:15 | XMS_ITS | Encounter Summary ---
Author Organization [facility] Address [address] [place] [id number] Phone Care Team Providers Care Warehouse Distribution Manager Name Role Phone Anirudh Adams MD Primary Care Provider [phone] Encounter Details Date Type Department Care Team (Late st Contact Info) Description 05/28/2021 6:15 PM EDT Hospital Encounter [facility] [address] [place] [phone] Cristina Cruz, MARY LOU [address] [place] [phone] [email or web address] Social History Tobacco Use Types Packs/Day Years Used Date Smoking Tobacco: Never Smokeless Tobacco: Never Education Answer Date Recorded Are you interested in more education? Not on [place] e 11/27/2022 Are you concerned about learning? Not on file 11/27/2022 No 11/27/2022 No 11/27/2022 Digital Access Answer Date Recorded No 12/26/2022 No 12/26/2022 No 12/26/2022 Reliable internet access at home? Not on file 12/26/2022 Device with a working camera? Not on file Comments Unknown Sex and Gender Information Value Date Recorded Sex Assigned at Not on file Legal Sex Female 5:03 PM EDT Gender Identity Not on file Sexual Orientation Not on file documented as of this encounter Plan of Treatment Not on file documented as of this encounter Procedures Procedure Name Priority Date/Time Associated Diagnosis Comments XR CHEST PA AND LATERAL 2 VIEWS Urgent/patient waiting 05/28/2021 6:21 PM EDT Cough documented in this encounter Results * XR CHEST PA AND LATERAL 2 VIEWS (05/28/2021 6:21 PM EDT) Anatomical Region Laterality Modality Chest Computed Radiogr aphy 05/28/2021 6:25 PM EDT Impressions 05/28/2021 6:27 PM EDT No acute cardiopulmonary process. Narrative 05/28/2021 6:27 PM EDT XR CHEST PA AND LATERAL 2 VIEWS COMPARISON: None. FINDINGS: Devices/Tubes/Lines: None. Lungs: No focal consolidation or pulmonary edema. Pleura: No pleural effusion or pneumothorax. Heart/Mediastinum: Normal heart and mediastinum. Bones/Soft Tissues: No significant skeletal abnormality. Procedure Note Etta Cohen MD - 05/28/2021 XR CHEST PA AND LATERAL 2 VIEWS COMPARISON: None. FINDINGS: Devices/Tubes/Lines: None. Lungs: No focal consolidation or pulmonary edema. Pleura: No pleural effusion or pneumothorax. Heart/Mediastinum: Normal heart and mediastinum. Bones/Soft Tissues: No significant skeletal abnormality. IMPRESSION: No acute cardiopulmonary process. Cristina Cruz FILM TOUCH UP INSPECTOR IMG XR CHEST Final Resul t documented in this encounter Visit Diagnoses Not on filedocumented in this encounter Additional Health Concerns Infection Onset Date Last Indicated Resolved Time CoV-Risk 05/28/2021 05/28/2021 06/07/2021 1:22 AM EDT documented as of this encounter Care Teams Warehouse Distribution Manager Relationship Specialty Start Date End Date Anirudh Adams MD [address] [place] [address] [place] [id number] PCP - General Internal Medicine 05/28/21 documented as of this encounter Additional Source Comments The information contained in this document represents components of the legal health record. It is not the complete legal health record.[facility]
--- OUTSIDE RECORDS SUMMARY | 2025-05-29 07:58 | XMS_ITS | Clinical Summary ---
Author Organization [facility] Address [address] [place] [address] Phone Care Team Providers Care Manager Private Name Role Phone Anirudh Adams MD Primary Care Provider [phone] Allergies Active Allergy Reactions Criticality Noted Date Comments Nitrofurantoin Monohyd/M-Cryst 05/28 Medications albuterol 90 mcg/actuation inhaler 1 Active SYNTHROID 75 mcg tablet 1 Active TRI-ESTARYLLA 0.18/0.215/0.25 mg-35 mcg (28) Tab 1 Active fluticasone propion-salmete roL (ADVAIR DISKUS) 100-50 mcg/dose DISKUS Inhale 100 mcg/actuation of fluticasone into the lungs 2 (two) times a day. Active predniSONE (DELTASONE) 20 MG tablet 3 tablets X 3 days, 2 tablets X 3 days , 1 tablet X 3 days 18 tablet 1 Active Active Problems No known active problems Immunizations Immunization Administration Dates Next Due COVID-19 (Pre-05/23) Moderna Vaccine, mRNA, PF 0 12/17/2020,11/19/2020 Social History Tobacco Use Types Packs/Day Years Used Date Smoking Tobacco: Never Smokeless Tobacco: Never Tobacco Cessation:Counseling Given: Yes Education Answer Date Recorded Are you interested [...] on file Sexual Orientation Not on file Last Filed Vital Signs Vital Sign Reading Time Taken Comments Blood Pressure 150/80 05/28/2021 5:38 PM EDT Pulse 99 05/28/2021 5:38 PM EDT Temperature 36.7 C (98 F) 05/28/2021 5:38 PM EDT Respiratory Rate 17 05/28/2021 5:38 PM EDT Oxygen Saturation 98% 05/28/2021 5:38 PM EDT Inhaled Oxygen Concentration - - Weight 68 kg (150 lb) 05/28/2021 5:38 PM EDT Height 163.8 cm (5' 4.5 ) 05/28/2021 5:38 PM EDT Body Mass Index 25.35 05/28/2021 5:38 PM EDT Plan of Treatment Health Maintenance Due Date Last Done Comments Adult Td,Tdap Booster 1970 LIPID PANEL 1970 TSH LEVEL 1970 DEPRESSION SCREENING 1982 HEPATITIS C SCREENING 1988 HIV ONE-TIME SCREENING (18-6 5 YEARS) 1988 PAP SMEAR 12/30/1991 MAMMOGRAM 2010 COLOGUARD 12/30/2015 COLONOSCOPY 12/30/2015 COLORECTAL CANCER SCREENING 12/30/2015 FIT TEST 12/30/2015 FOBT 12/30/2015 SIGMOIDOSCOPY 12/30/2015 VIRTUAL COLONOSCOPY 12/30/2015 PNEUMOCOCCAL VACCINES (50+ years) (1 of 1 - PCV) 2020 ZOSTER VACCINES (1 of 2) 2020 INFLUENZA VACCINE (#1) 2025 COVID-19 VACCINE (3 - 2024-2 6 season) 2025 12/17/2020, 11/19/2020 RSV VACCINE (1 - 1-dose 75+ series) 2045 SMOKING STATUS SCREENING (On ce After 26 Yrs) Completed 05/28/2021 HEPATITIS A VACCINES Aged Out No long er eligible based on patient's age to complete this topic HIB VACCINES Aged Out No longer eligi ble based on patient's age to complete this topic MENINGOCOCCAL VACCINES (ACWY) Aged Out No longer eligible based on patient's age to complete this topic MENINGOCOCCAL VACCINES (B) Aged Out N o longer eligible based on patient's age to complete this topic Medical Devices Not on file Insurance OUT [facility] PPO OUT OF STATE PPO BLUE CROSS OUT OF STATE PPO BLUE CROSS OUT OF STATE PPO BLUE CROSS OUT OF STATE PPO BLUE CROSS OUT OF STATE PPO BLUE CROSS OUT OF STATE PPO BLUE CROSS OUT OF STATE PPO Care Teams Manager Private Relationship Specialty Start Date End Date Anirudh Adams MD [address] [place] [address] [place] [address] PCP - General Internal Medicine 05/28/21 Additional Source Comments The information contained in this document represents components of the legal health record. It is not the complete legal health record.[facility]
--- OUTSIDE RECORDS SUMMARY | 2025-05-29 07:58 | XMS_ITS | Patient Health Record ---
Author Organization [facility] Address [address] [address] Care Team Providers Care Health Information Managers Name Role Phone DEBBIE AGRAWAL Primary Care Provider PRABHU Byrnes Unavailable [phone] Allergies Allergen (clinical drug ingredient) Drug/Non Drug Allergy documented on EMR Reaction Allergy Type Onset Date Status nitrofurantoin, macrocrystals / nitrofurantoin, monohydrate MACROBID Skin Rash Drug Allergy Active Reason For Referral No Information Medications Medication SIG (Take, Route, Frequency, Duration) Notes Start Date End Date Status Tri-Estarylla 0.18/0.215/0.25 MG-35 MCG 1 tablet Orally Once a day; Duration: 84 days Active Levoxyl 75MG 1 ORAL daily; Duration: -3 10/12/2011 Active Flovent HFA 110MCG 2 INHALED twice nic y; Duration: -3 10/12/2011 Active Advair HFA 45-21 MCG/ACT [...] Status W/U Status Risk Notes Problem Hypothyroidism (36747269) Unspecified hypothyroidism (244.9) Active confirmed Major Problem Asthma (disorder) (652896250) Asthma, unspecified, unspecified status (493.90) Active confirmed Major Vital Signs Temperature 97.5 degrees Fahrenheit 08/17/2024 Blood pressure diastolic 74 mm Hg 08/17/2024 Height 64.5 in 08/17/2024 Blood pressure systolic 120 mm Hg 08/17/2024 Weight 141 lbs 08/17/2024 BMI 23.83 kg/m2 08/17/2024 Encounters Encounter Location Date Provider Diagnosis [facility] [place] [address] [place] [address] 08/17/2024 PRABHU HAMMOND Encounter for gynecological examination (general) (routine) without abnormal findings Z01.419 ; Encounter for screening mammogram for malignant neoplasm of breast Z12.31 and Encounter for surveillance of contraceptive pills Z30.41 [facility] [place] [address] [place] [address] 07/23/2024 PRABHU HAMMOND Encounter for surveillance of [...] 3D 2024 Next Appt Details Provider Name:PRABHU FRIEND Carlos, 08/23/2025 08:30:00 AM, [address], [address], [place], [address], Insurance Providers Payer Name Payer Address Payer Phone Subscriber Number Group Number Insured Name Patient Relationship to Insured Coverage Start Date Coverage End Date [facility]y [facility] [address] [place] [address] [id number] MAGGY ARROYO Self - patient is the insured 4 Medical (General) History Medical History History ICD Code Other asthma J45.998 Hypothyroidism, unspecified E03.9 COVID-19 U07.1 Surgical History Surgery Date(Month/Year) Hospitalization History Reason Date(Month/Year) 1 Vaginal Delivery
--- OUTSIDE RECORDS SUMMARY | 2025-05-29 07:58 | XMS_ITS | Clinical Summary ---
Author Organization [facility] Address [address] [place] [address] Phone Care Team Providers Care Rhic Systems Safety Engineer Name Role Phone Unavailable Primary Care Provider Unavailabl e Social History Tobacco Use Types Packs/Day Years Used Date Smoking Tobacco: Never Assessed Comments Unknown Sex and Gender Information Value Date Recorded Sex Assigned at Not on file Legal Sex Female 8:53 AM EST Gender Identity Not on file Sexual Orientation Not on file Plan of Treatment Health Maintenance Due Date Last Done Comments Breast Cancer Screening 1970 Colorectal Cancer Screening: Colonoscopy 1970 DTaP,Tdap,and Td Vaccines (1 - Tdap) 1989 Hepatitis B Vaccines (1 of 3 - 19+ 3-dose series) 1989 Cervical Cancer Screening: Pap Smear 12/30/1991 Zoster Vaccines (1 of 2) 2020 Pneumococcal Vaccine: 50+ Years (2 of 2 - PCV20 or PCV21) 05/23/2021 05/23/2020 Depression Screening 08/01/2024 HIV Screening 08/31/2024 Hepatitis C Screening 08/31/2024 Social Influencers of Health Screening 08/31/2024 COVID-19 Vaccine ( season) 2025 09/12/2021, 12/17/2020, 11/19/2020 Influenza Vaccine (#1) 2025 , 05/24/2018, 05/04/2017, Additional history exists RSV Immunization Adult Patients (1 - 1-dose 75+ series) 2045 HIB Vaccines Aged Out No longer eligi [...]
== END 2025-05-29 07:56 | disposition home or self-care (01) ==
LOC: HO.MAMMO 07:55
PROVIDERS: PCP Internal Medicine; Visit Provider Internal Medicine
DX: Z12.31 Encounter for screening mammogram for malignant neoplasm of breast (principal)
CPT/HCPCS: 77063; 77067

== ENCOUNTER → 2025-05-29 08:00 | Outpatient (BNV) | payer OTHER, SELFPAY | PROVIDERS: PCP Internal Medicine; Visit Provider Internal Medicine | DX: Z12.31 Encounter for screening mammogram for malignant neoplasm of breast (principal) | CPT/HCPCS: 77063; 77067 ==